=== PATIENT | female | born 1970 ===

== ENCOUNTER 2018-07-14 09:28 | Day surgery (SDC) | payer OTHER ==
[2018-07-14] MEDS ORDERED: Lactated Ringer's 500 ML IV ONE (09:51)
[2018-07-14 09:59] VITALS: BMI 24.4
[2018-07-14] MEDS ORDERED: Propofol 10 mg/ml Inj (20 ML) ONE (11:30)
[2018-07-14 11:54] VITALS: TEMP 97; O2SAT 100
[2018-07-14 12:04] VITALS: BP 102/68; PULSE 81; RESP 18
== END 2018-07-14 14:24 | disposition home or self-care (01) ==
LOC: H.ENDO 09:28
PROVIDERS: ATTEND Internal Medicine Gastroenterology
DX: K29.50 Unspecified chronic gastritis without bleeding (principal); K31.89 Other diseases of stomach and duodenum; J45.909 Unspecified asthma, uncomplicated; E78.5 Hyperlipidemia, unspecified; Z85.42 Personal history of malignant neoplasm of other parts of uterus; E78.00 Pure hypercholesterolemia, unspecified; Z90.710 Acquired absence of both cervix and uterus; R12 Heartburn
CPT/HCPCS: 43239; 88305; 88312; 88342; J2001; J2704; J7120